=== PATIENT | female | born 1945 | race Hispanic/Latino ===

== ENCOUNTER 2018-06-12 18:04 | Observation (INO) | payer MEDICARE, OTHER ==
[~2018-06-12] VITALS: Ht 157.5 cm; Wt 83.2 kg
[~2018-06-12 18:04] MED LIST: HUMULIN R100 UNIT/2 SC; LOSARTAN POTASS25 MG
[2018-06-12] MEDS ORDERED: ONDANSETRON HCL INJ 2 MG/ML VIAL IV PRN ×2 (18:15→19:00)
[2018-06-12] MEDS ORDERED: ENALAPRILAT IV INJ 1.25 MG/ML VIAL IV STA (18:15)
[2018-06-12] MEDS ORDERED: ACETAMINOPHEN 325 MG TAB PO PRN ×2 (18:30→19:00)
[2018-06-12 18:42] LABS: BASOPHILS % 0.5 % (0.0-1.0); EOSINOPHILS # (AUTO) 0.2 (0.0-0.4); EOSINOPHILS % 3.9 % (0.0-6.0); HEMATOCRIT 33.1 % (34.2-44.1); HEMOGLOBIN 10.4 g/dL (12.0-16.0); LYMPHOCYTES # (AUTO) 1.5 (1.0-3.2); LYMPHOCYTES % 25.7 % (18.0-39.1); MEAN CORPUSCULAR HEMOGLOBIN 27.5 pg (28-32); MEAN CORPUSCULAR HGB CONC 31.4 g/dL (31-35); MEAN CORPUSCULAR VOLUME 87.6 fL (81-99); MONOCYTES # (AUTO) 0.4 (0.2-0.8); MONOCYTES % 6.8 % (4.4-11.3); NEUTROPHILS # (AUTO) 3.7 (2.1-6.9); NEUTROPHILS % 62.8 % (38.7-80.0); PLATELET COUNT 231 x10e3/uL (140-360); RED BLOOD COUNT 3.78 x10e6/uL (3.6-5.1); RED CELL DISTRIBUTION WIDTH 14.3 % (11.7-14.4)
[2018-06-12 18:53] LABS: ALANINE AMINOTRANSFERASE 11 IU/L (0-55); ALBUMIN 3.8 g/dL (3.5-5.0); ALBUMIN/GLOBULIN RATIO 0.9 (0.8-2.0); ALKALINE PHOSPHATASE 90 IU/L (40-150); ANION GAP 12.4 mmol/L (8-16); BLOOD UREA NITROGEN 16 mg/dL (7-26); BUN/CREATININE RATIO 19 (6-25); CALCIUM 9.8 mg/dL (8.4-10.2); CARBON DIOXIDE 26 mmol/L (22-29); CHLORIDE 102 mmol/L (98-107); CREATINE KINASE 146 IU/L (29-168); CREATININE, SERUM 0.84 mg/dL (0.57-1.11); EST GLOMERULAR FILTRATION RATE > 60 ML/MIN (60-); GLUCOSE 133 mg/dL (74-118); MAGNESIUM 1.6 MG/DL (1.3-2.1); POTASSIUM 4.4 mmol/L (3.5-5.1); SODIUM 136 mmol/L (136-145)
[2018-06-12] MEDS ORDERED: MYRBETRIQ25 MG PO (18:54)
[2018-06-12] MEDS ORDERED: CLOPIDOGREL75 MG PO (18:54)
[2018-06-12] MEDS ORDERED: MELOXICAM7.5 MG PO (18:54)
[2018-06-12] MEDS ORDERED: ASPIR 8181 MG PO (18:54)
[2018-06-12] MEDS ORDERED: METFORMIN HCL500 MG PO (18:54)
[2018-06-12] MEDS ORDERED: LEVOTHYROXINE50 MCG PO (18:54)
[2018-06-12] MEDS ORDERED: LINZESS PO (18:54)
[2018-06-12] MEDS ORDERED: ATORVASTATIN CA20 MG PO (18:54)
[2018-06-12] MEDS ORDERED: LOSARTAN POTAS100 MG PO (18:54)
[2018-06-12] MEDS ORDERED: CARVEDILOL3.125 MG PO (18:54)
[2018-06-12] MEDS ORDERED: ENALAPRILAT IV INJ 1.25 MG/ML VIAL IV PRN (19:00)
[2018-06-12] MEDS ORDERED: DEXTROSE 50% SYRINGE 50 ML IV PRN (19:00)
[2018-06-12] MEDS ORDERED: DIPHENHYDRAMINE HCL 25 MG CAP PO PRN (19:00)
[2018-06-12] MEDS ORDERED: CLONIDINE HCL 0.1 MG TAB PO PRN (19:00)
[2018-06-12] MEDS ORDERED: ZOLPIDEM TARTRATE 5 MG TAB PO PRN (19:00)
[2018-06-12] MEDS ORDERED: ONDANSETRON HCL 4 MG ORAL DISINTEGRATING TAB PO PRN (19:00)
[2018-06-12] MEDS ORDERED: FUROSEMIDE INJ 10 MG/ML 4 ML VIAL IV ONE (19:00)
[2018-06-12] MEDS ORDERED: HUMULIN R100 UNIT/2 SC (19:21)
--- NOTE | 2018-06-12 19:46 | Diagnostic Imaging Report ---
EXAMINATION: Head CT without contrast. HISTORY:Headache, high blood pressure. COMPARISON:CT brain from 08/17/2015. TECHNIQUE: Multidetector axial images were obtained from the foramen magnum to the vertex without contrast. The images were reconstructed using brain and bone algorithms. Thin section brain images were reformatted into coronal and sagittal planes. Intravenous contrast: None IMAGE QUALITY: Acceptable. FINDINGS: Skull/scalp: No lytic or blastic. lesions. No surgical changes. Parenchyma: No abnormal density. No acute hemorrhage, mass or acute major vascular territorial infarct. Arteries: Mild atherosclerotic calcification in bilateral carotid siphon. Dural sinuses: No abnormal density suggestive of thrombosis. Ventricles: No hydrocephalus or displacement. Extra-axial spaces: No abnormal density. Brain volume: Normal for age. Craniocervical junction: No mass, Chiari malformation, or basilar invagination. Sella: No mass. Paranasal/mastoid sinuses: Imaged portions unremarkable. IMPRESSION: No intracranial abnormality. Signed by: Dr. La Nena Gunter M.D. on 06/12/2018 7:42 PM
[2018-06-12] MEDS ORDERED: HYDROCODONE/APAP 5MG-325MG TAB PO PRN (20:00)
[2018-06-12 20:05] VITALS: BP 187/70
[2018-06-12] MEDS: INSULIN REGULAR, HUMAN 100 UNIT/1 ML 3ML VIAL SQ SCH (20:53)
[2018-06-12] MEDS ORDERED: ATORVASTATIN 40 MG TAB PO SCH (21:00)
[2018-06-12] MEDS: CARVEDILOL 12.5 MG TAB PO SCH (21:04)
[2018-06-12] MEDS: LOSARTAN POTASSIUM 25 MG TAB PO SCH (21:06)
[2018-06-12] MEDS: AMLODIPINE BESYLATE 10 MG TAB PO SCH (21:06)
[2018-06-12 22:12] VITALS: BP 187/70
[2018-06-12 22:16] VITALS: BP 187/70
[2018-06-13] VITALS (7 sets, daily range): BP systolic 125–162; BP diastolic 58–71
[2018-06-13 03:41] LABS: BASOPHILS % 0.6 % (0.0-1.0); EOSINOPHILS # (AUTO) 0.2 (0.0-0.4); EOSINOPHILS % 3.4 % (0.0-6.0); HEMATOCRIT 31.4 % (34.2-44.1); HEMOGLOBIN 10.2 g/dL (12.0-16.0); LYMPHOCYTES # (AUTO) 1.6 (1.0-3.2); LYMPHOCYTES % 22.8 % (18.0-39.1); MEAN CORPUSCULAR HEMOGLOBIN 27.7 pg (28-32); MEAN CORPUSCULAR HGB CONC 32.5 g/dL (31-35); MEAN CORPUSCULAR VOLUME 85.3 fL (81-99); MONOCYTES # (AUTO) 0.5 (0.2-0.8); NEUTROPHILS # (AUTO) 4.5 (2.1-6.9); NEUTROPHILS % 65.9 % (38.7-80.0); PLATELET COUNT 209 x10e3/uL (140-360); RED BLOOD COUNT 3.68 x10e6/uL (3.6-5.1); RED CELL DISTRIBUTION WIDTH 14.4 % (11.7-14.4)
[2018-06-13 03:51] LABS: ANION GAP 14.3 mmol/L (8-16); CALCIUM 9.4 mg/dL (8.4-10.2); CHOL/HDL RATIO 3.1 (3.0-3.6); CREATININE, SERUM 1.05 mg/dL (0.57-1.11); MAGNESIUM 1.3 MG/DL (1.3-2.1); POTASSIUM 4.3 mmol/L (3.5-5.1)
[2018-06-13 04:11] LABS: FREE T4 (FREE THYROXINE) 1.06 ng/dL (0.9-1.8); THYROID STIMULATING HORMONE 3.653 uIU/mL (0.350-4.940)
[2018-06-13] MEDS ORDERED: LEVOTHYROXINE SODIUM 50 MCG TAB PO SCH (06:00)
[2018-06-13 06:32] LABS: CREATINE KINASE 121 IU/L (29-168)
[2018-06-13] MEDS ORDERED: FAMOTIDINE 20 MG TAB PO SCH (07:30)
[2018-06-13] MEDS: CARVEDILOL 12.5 MG TAB PO SCH (08:22)
[2018-06-13] MEDS ORDERED: METFORMIN HCL 500 MG TAB PO SCH (08:45)
[2018-06-13] MEDS: AMLODIPINE BESYLATE 10 MG TAB PO SCH (09:00)
[2018-06-13] MEDS ORDERED: CLOPIDOGREL BISULFATE 75 MG TAB PO SCH (09:00)
[2018-06-13] MEDS: INSULIN REGULAR, HUMAN 100 UNIT/1 ML 3ML VIAL SQ SCH ×2 (09:07→12:34)
[2018-06-13] MEDS: LOSARTAN POTASSIUM 25 MG TAB PO SCH (09:37)
[2018-06-13 11:27] LABS: CREATINE KINASE 117 IU/L (29-168)
[2018-06-13] MEDS ORDERED: LISINOPRIL10 MG PO (12:35)
[2018-06-13] MEDS ORDERED: ATORVASTATIN CA10 MG PO (12:36)
[2018-06-13] MEDS ORDERED: AMLODIPINE BESY10 MG PO (13:00)
--- NOTE | 2018-06-13 14:34 | History and Physical ---
SHORTSTAY SUMMARY PRIMARY CARE PROVIDER: Dr. Gunner Dominguez. CHIEF COMPLAINT: Elevated blood pressure and headache. HISTORY OF PRESENT ILLNESS: Ms. Ramires is a 73-year-old lady presents with 1 day with markedly elevated blood pressure and headache. REVIEW OF SYSTEMS: She denies fever, chills, or weight loss. She denies sinus congestion or sore throat. She denies chest pain or palpitations. She denies shortness of breath, wheezing or cough. She denies abdominal pain, nausea, vomiting, or melena. She denied dysuria or flank pain. She denies rash or pruritus. She denies joint pain or swelling. She denies bleeding or bruising. She has a severe headache but denies vertigo or loss of consciousness. She denies depression, agitation, homicidal or suicidal ideation. PAST MEDICAL HISTORY: Significant for longstanding hypertension and type 2 diabetes as well as coronary artery disease. She does have a history of an elective coronary stent placement but no previous NE. She has no other surgery. MEDICATIONS 1. Losartan 100 mg daily. 2. Carvedilol 6.25 mg 1-1/2 tablets twice daily. 3. Aspirin 81 mg daily. 4. Meloxicam 15 mg daily. 5. Myrbetriq 25 mg daily. 6. Linzess as needed for constipation. 7. Lipitor 40 mg at bedtime. 8. Plavix 75 mg daily. 9. Levothyroxine 50 mcg daily. 10. Metformin 500 mg twice daily. ALLERGIES: SHE HAS A STATED ALLERGY TO PENICILLIN. FAMILY HISTORY: Significant for hypertension and diabetes. SOCIAL HISTORY: The patient is and speaks only [place]. She does not smoke, drink or use illegal drugs and she is generally independently functioning. PHYSICAL EXAM PSYCHIATRIC: She is alert and oriented times 3 with normal mood and affect. CONSTITUTIONAL: She has a normal body habitus, is in no acute distress. VITAL SIGNS: Blood pressure 135/60, pulse 62 and regular, respiratory rate 19, O2 sat 95%, temperature 97.9. Her initial blood pressure on admission was 192/109, came down with hydralazine and clonidine. Norvasc was added. HEENT: Her head is atraumatic. Her eyes are anicteric with clear conjunctiva. Ears and nares without erythema or discharge. Oropharynx is clear. NECK: Is supple. No mass or thyromegaly. LYMPHATIC: She has no palpable cervical axillary or inguinal adenopathy. CARDIOVASCULAR: Her heart has a regular rate and rhythm without murmur or extra heart sounds. She has no carotid bruits. She has no peripheral edema. She has palpable dorsal pedal pulses. RESPIRATORY: Lungs are clear to auscultation and percussion with normal respiratory effort. GASTROINTESTINAL: Abdomen is soft without organomegaly, masses, or tenderness. She has normal bowel sounds present. CUTANEOUS: Her skin is warm and dry to touch with no rash or skin breakdown. MUSCULOSKELETAL: Her joints are in normal alignment without erythema or swelling. She has no calf tenderness. NEUROLOGIC: Exam is nonfocal with intact cranial nerves and no motor or sensory deficits. DIAGNOSTIC STUDIES: CT scan of the brain shows no abnormalities. Her chemistry shows normal electrolytes, CO2 25, creatinine 1.05, BUN 21 for a normal GFR, glucose 195. Transaminases, bilirubin and alk phos were normal. Hemoglobin A1c level is 6.6. Her white count is 6.83 with a normal differential. Hemoglobin 10.2, hematocrit 31.4, platelet count 209,000. IMPRESSIONS AND PLANS 1. Malignant hypertension, complicated by coronary artery disease. The patient's blood pressure is now well controlled. She was initially treated with hydralazine and clonidine. She had Norvasc added which has controlled her blood pressure well. We will continue that at discharge. 2. Type 2 diabetes. Appears fairly well controlled. Her A1c level is 6.6. Will continue metformin and insulin on her regular regimen plus sliding scale insulin. 3. Coronary artery disease. The patient will continue with aspirin and Plavix. Will monitor. No intervention at this time. 4. For prophylaxis, the patient is on Pepcid for gastrointestinal prophylaxis and sequential compression devices for deep venous thrombosis prophylaxis. HOSPITAL COURSE: The patient was admitted to the floor overnight. Her blood pressure came under good control with the addition of Norvasc and the patient was discharged home to continue all of her home medications with the addition of Norvasc 10 mg daily. She will resume the rest of her home meds, diabetic diet, and activity as tolerated, and follow up with her PCP within 2 weeks. Job#: [id number] KATHRIN
== END 2018-06-13 14:11 | disposition home or self-care (01) ==
LOC: ER 18:04 → ERHOLD 19:04 → IMCU 20:05
PROVIDERS: ADMIT Internal Medicine; ATTEND Internal Medicine
DX: I11.9 Hypertensive heart disease without heart failure (principal); R51 Headache; Z88.0 Allergy status to penicillin; E11.9 Type 2 diabetes mellitus without complications; I25.10 Atherosclerotic heart disease of native coronary artery without angina pectoris; Z95.5 Presence of coronary angioplasty implant and graft
CPT/HCPCS: 36415 ×2; 70450; 80048; 80053; 80061; 82550 ×2; 82553 ×2; 82948 ×2; 83036; 83735 ×2; 83880 ×2; 84439; 84443; 84484 ×2; 85025 ×2; 93005; 97116; 97161; 99284; G0378 ×2; G8978; G8979; G8980; J1940; J2405